=== PATIENT | male | born 1945 | race African-American/Black ===

== ENCOUNTER 2019-02-08 21:06 | Emergency (ER) | payer OTHER ==
[~2019-02-08] VITALS: Ht 188 cm; Wt 136.0 kg
[2019-02-08 23:46] LABS: BASOPHILS % 0.4 % (0.0-2.0); EOSINOPHILS % 0.7 % (0.0-5.0); HEMATOCRIT. 40.9 % (42.0-52.0); HEMOGLOBIN. 13.2 g/dL (14.0-18.0); LYMPHOCYTES % 14.8 % (20.0-50.0); MEAN CORPUSCULAR HEMOGLOBIN 25.7 pg (28.0-32.0); MEAN CORPUSCULAR VOLUME 79.5 fL (80.0-94.0); MEAN PLATELET VOLUME 8.3 fl (7.4-10.4); NEUTROPHILS % 77.1 % (40.0-76.0); PLATELET 231 x1000/uL (130-400); RED BLOOD CELL COUNT 5.14 mill/uL (4.7-6.1); RED CELL DISTRIBUTION WIDTH 15.5 % (11.6-14.6)
[2019-02-08 23:52] LABS: CHLORIDE 107 mEq/L (98-107)
[2019-02-09 01:56] VITALS: BP 152/102
== END 2019-02-09 02:18 | disposition home or self-care (01) ==
LOC: ER 21:06
DX: R61 Generalized hyperhidrosis (principal); N28.9 Disorder of kidney and ureter, unspecified; E86.0 Dehydration; I11.0 Hypertensive heart disease with heart failure; I50.9 Heart failure, unspecified; Z85.46 Personal history of malignant neoplasm of prostate
CPT/HCPCS: 36415; 83880; 84484; 93005; 99284